=== PATIENT | male | born 1995 | race Caucasian/White ===

== ENCOUNTER 2019-11-03 19:12 | Emergency (ER) | payer OTHER ==
[~2019-11-03] VITALS: Ht 172.7 cm; Wt 158.8 kg
[2019-11-03 19:52] LABS: ABSOLUTE BASOPHILS 0.1 thou/uL (0.0-0.2); ABSOLUTE EOSINOPHILS 0.1 thou/uL (0.0-0.7); ABSOLUTE LYMPHOCYTES 1.7 thou/uL (0.8-5.3); ABSOLUTE MONOCYTES 0.8 thou/uL (0.0-1.2); ABSOLUTE NEUTROPHILS 6.2 thou/uL (1.6-8.1); BASOPHILS 0.8 %; EOSINOPHILS 0.7 %; HEMATOCRIT 46.6 % (42.0-52.0); HEMOGLOBIN 16.4 gm/dL (14.0-18.0); LYMPHOCYTES 19.5 %; MCH 31.3 pg (26.0-34.0); MCHC 35.3 g/dL (28.0-37.0); MCV 88.8 fL (80.0-100.0); MPV 9.5 fl. (7.2-11.1); NUCLEATED RBCS 0 /100WBC; PLATELET COUNT* 270 thou/uL (150-400); RBC 5.25 mil/uL (4.50-6.00); RDW-CV 13.4 % (10.5-14.5); WBC 8.8 thou/uL (4.0-11.0)
[2019-11-03 19:58] LABS: PROTIME 10.7 Seconds (9.20-11.50)
[2019-11-03 20:03] LABS: CALCIUM 8.5 mg/dL (8.5-10.1); POTASSIUM 3.9 mmol/L (3.5-5.1)
[2019-11-03 20:09] LABS: ALBUMIN 3.8 g/dL (3.4-5.0); TOTAL BILIRUBIN 0.4 mg/dL (<0.1-1.0); TOTAL PROTEIN 8.4 g/dL (6.4-8.2)
[2019-11-03] MEDS ORDERED: NORVASC5 M1 PO (20:53)
[2019-11-03 21:13] VITALS: BP 145/72
--- NOTE | 2019-11-04 10:00 | EKG ---
[place] [address] ELECTROCARDIOGRAM REPORT Name: JUDITH GRADY [facility]: [facility] SYSTEMErasto[facility] [id number] Admission: 11/03/19 Attend Phys: Discharge: 11/03/19 Date of : [birth year] Report #: [id number] THIS REPORT FOR: //name// [facility] ED Test Date: 2019-11-03 Test Time: 20:07:41 Pat Name: JUDITH GRADY Department: Room: Gender: M [employer] Operations Engineer In Charge: [place] : 1995 Requested By: Wes Clifford Order Number: [id number] MD: Mazin Kwon Measurements Intervals [place] Rate: 97 P: 12 NC: 148 QRS: 2 QRSD: 90 T: 30 QT: 352 QTc: 447 Interpretive Statements Sinus rhythm LVH by voltage No previous ECG available for comparison Electronically Signed On 11-04-2019 9:59:51 [employer] by Mazin Kwon [email or web address] <ELECTRONICALLY SIGNED> By: Mazin Kwon MD, [facility] 11/04/19 0959 06 06 Mazin Kwon MD, FACC /EPI
== END 2019-11-03 21:13 | disposition home or self-care (01) ==
LOC: M.ERS 19:12
PROVIDERS: Emergency Medicine Emergency Medical Services
DX: R20.2 Paresthesia of skin (principal); R51 Headache; I10 Essential (primary) hypertension